=== PATIENT | male | born 1975 | race African-American/Black ===

== ENCOUNTER 2020-05-17 23:41 | Observation (INO) ==
[2020-05-18] MEDS ORDERED: NITROGLYCERIN 2% OINT 1 INCH/GM PACK TOP STA (00:08)
[2020-05-18] MEDS ORDERED: ALUM/MAG/SIMETH/LIDO VISC 1:1 30 ML BOTTLE PO STA (00:08)
[2020-05-18] MEDS ORDERED: FUROSEMIDE 40 MG/4 ML VIAL IV STA (00:08)
[2020-05-18] MEDS ORDERED: ONDANSETRON 4 MG/2 ML VIAL IV STA (00:08)
[2020-05-18] MEDS ORDERED: MORPHINE 4 MG/1 ML VIAL IV STA (00:08)
[2020-05-18] MEDS ORDERED: ASPIRIN 325 MG TABLET PO STA (00:08)
[2020-05-18 00:28] LABS: PT Patient Result 10.9 SECS (9.8-11.9)
[2020-05-18 00:34] LABS: Albumin 3.6 G/DL (3.4-5.0); Bilirubin,Total 0.5 MG/DL (0.2-1.0); Calcium 9.1 MG/DL (8.5-10.1); Osmolality,Calculated 278.5 MOS/KG (273-304); Total Protein 7.6 G/DL (6.4-8.3)
[2020-05-18 00:55] LABS: Basophils % 0.8 % (0.0-0.8); Eosinophils # 0.3 10*3/uL (0.0-0.87); Eosinophils % 5.2 % (0.00-10.9); Hematocrit 43.6 VOL% (42.0-52.0); Hemoglobin 14.4 GM/DL (14.0-18.0); Immature Granulocytes % 0.8 %; Immature Granulocytes Absolute 0.04 #; Lymphocytes # 2.1 10*3/uL (1.4-4.0); Lymphocytes % 43.2 % (21.2-54.2); Mean Corpuscular Volume 87.6 FL (87-102); Mean Platelet Volume 11.6 FL (9.6-12.0); Monocytes % 13.1 % (1.7-12.7); Neutrophils % 36.9 % (38.7-73.9); Platelet Count 148 T/CUMM (130-400); Red Blood Count 4.98 MC/CUMM (3.8-5.5); Red Cell Distribution Width 13.1 % (9.3-17.3); White Blood Count 4.8 T/CUMM (4-12)
[2020-05-18] MEDS ORDERED: ENOXAPARIN 120 MG/0.8 ML SYRINGE SUBCUT STA (00:57)
[2020-05-18] MEDS ORDERED: MORPHINE 4 MG/1 ML VIAL IV PRN (00:59)
[2020-05-18] MEDS ORDERED: ONDANSETRON 4 MG/2 ML VIAL IV PRN (00:59)
[2020-05-18] MEDS ORDERED: GLUCAGON 1 MG VIAL IM PRN (01:05)
[2020-05-18] MEDS ORDERED: DEXTROSE 50% 25 GM/50 ML VIAL IV PRN (01:05)
[2020-05-18 01:20] LABS: Apearance,Urine CLEAR (Clear); Bilirubin,Urine Negative (Negative); Blood, Urine Negative (Negative); Glucose,Urine (UA) Negative (Negative); Ketones,Urine Negative (Negative); Mucus,Urine Few /LPF (Occasional); Nitrite,Urine Negative (Negative); Protein,Urine Negative; RBC,Urine 1 /HPF (0-4); Squamous Epithelial Cell,Urine Occasional /HPF (0-10); Urine Color Yellow (Yellow); Urine Specific Gravity 1.021 (1.001-1.035); Urine Urobilinogen < 2.0 EU/DL (0.2-1.0); WBC,Urine <1 /HPF (0-6)
[2020-05-18 01:24] LABS: Barbiturates Screen,Urine Negative (Negative); Benzodiazepines Screen,Urine Negative (Negative); Cannabinoid Screen,Urine Negative (Negative); Opiate Screen,Urine Negative (Negative); Phencyclidine Screen,Urine Negative (Negative)
[2020-05-18 01:40] LABS: Risk Ratio 3.09; VLDL CHOLESTEROL 55.4 MG/DL
[2020-05-18] MEDS ORDERED: LORazepam 2 MG/1 ML VIAL IV PRN (02:05)
[2020-05-18 05:04] LABS: Eosinophils 4 % (0-10); Lymphocytes 46 % (20-55); Segmented Neutrophils 39 % (50-85); Total Cells Counted 100
[2020-05-18 05:05] LABS: Hypochromasia 2+; Platelet Estimate Normal
[2020-05-18] MEDS ORDERED: NITROGLYCERIN 2% OINT 1 INCH/GM PACK TOP SCH (06:00)
[2020-05-18] MEDS ORDERED: PANTOPRAZOLE 40 MG TABLET PO SCH (09:00)
[2020-05-18] MEDS ORDERED: FENOFIBRATE 160 MG TABLET PO SCH (10:30)
[2020-05-18] MEDS ORDERED: amLODIPine 10 MG TABLET PO SCH (10:30)
[2020-05-18 11:16] VITALS: BP 124/84
[2020-05-18] MEDS ORDERED: ENOXAPARIN 150 MG/ML SYRINGE SUBCUT SCH (13:00)
== END 2020-05-18 11:01 | disposition home or self-care (01) ==
LOC: N.ED 23:41 → N.EDINP 23:41
PROVIDERS: ADMIT Internal Medicine; ATTEND Internal Medicine